=== PATIENT | male | born 1965 | race Caucasian/White ===

== ENCOUNTER 2023-01-01 13:45 | Emergency (ER) | payer BC ==
[~2023-01-01] VITALS: Ht 177.8 cm; Wt 110.0 kg
[~2023-01-01 13:45] MED LIST: LISI-230 PO; TAMS0.4C32 PO
[2023-01-01 14:08] VITALS: BP 173/102
[2023-01-01] MEDS ORDERED: LIDOcaine 5% patch TP STA (15:08)
[2023-01-01] MEDS ORDERED: ketorolac trometh inj. 60 MG/2 ML VIAL IM ONE (15:10)
[2023-01-01] MEDS ORDERED: HYDR-3973 PO (15:16)
[2023-01-01] MEDS ORDERED: LIDO-12 TP (15:16)
== END 2023-01-01 16:01 | disposition home or self-care (01) ==
LOC: ER 13:45
DX: R07.81 Pleurodynia (principal); I10 Essential (primary) hypertension; Z79.899 Other long term (current) drug therapy; W19.XXXA Unspecified fall, initial encounter; Y93.89 Activity, other specified; Y92.89 Other specified places as the place of occurrence of the external cause; Y99.8 Other external cause status
CPT/HCPCS: 71046; 87040; 96372; 99284; J1885